=== PATIENT | female | born 1940 | race Caucasian/White ===

== ENCOUNTER 2019-08-08 15:31 | Emergency (ER) | payer MEDICAID, MEDICARE ==
[~2019-08-08] VITALS: Ht 154.9 cm; Wt 64.9 kg
[~2019-08-08 15:31] MED LIST: LEVO100T9 PO
[2019-08-08 15:46] VITALS: BP_SYST 140
--- NOTE | 2019-08-08 15:48 | NUR ---
Patient to ER bed 8 to gown for evaluation. Side rails up.
--- NOTE | 2019-08-08 15:58 | NUR ---
pt bib her son for righ knee pain. Pt fell and tripped outside while smoking. Pt denies any head pain or injury. Will conitnue to monitor.
--- NOTE | 2019-08-08 16:00 | NUR ---
MACRINA Goff at bedside examining patient.
[2019-08-08 16:10] LABS: BASOPHILS # (AUTO) 0.1 K/uL (0.0-0.2); BASOPHILS % (AUTO) 0.8 % (0.0-2.0); EOSINOPHILS # (AUTO) 0.1 K/uL (0.0-0.4); EOSINOPHILS % (AUTO) 1.3 % (0.0-4.0); HEMATOCRIT 36.4 % (36-48); HEMOGLOBIN 12.2 g/dL (12.0-16.0); LYMPHOCYTES # (AUTO) 0.8 K/uL (1.0-5.5); LYMPHOCYTES % (AUTO) 10.4 % (20.5-51.5); MEAN CORPUSCULAR HEMOGLOBIN 31 pg (27-31); MEAN CORPUSCULAR HGB CONC 34 % (32-36); MEAN CORPUSCULAR VOLUME 92 fL (79.0-98.0); MONOCYTES # (AUTO) 0.4 K/uL (0.0-1.0); MONOCYTES % (AUTO) 5.6 % (1.7-9.3); NEUTROPHILS # (AUTO) 6.1 K/uL (1.8-7.7); NEUTROPHILS % (AUTO) 81.9 % (40.0-70.0); PLATELET COUNT (AUTO) 182 K/uL (130-430); RED BLOOD CELL COUNT(AUTO) 3.96 MIL/uL (4.2-6.2); RED CELL DISTRIBUTION WIDTH 14.3 % (9.0-15.0); WHITE BLOOD COUNT (AUTO) 7.4 K/uL (4.8-10.8)
[2019-08-08 16:23] LABS: ANION GAP 11 (5-15); CALCIUM 7.7 mg/dL (8.4-11.0); CHLORIDE 99 mmol/L (98-107); CREATININE 1.36 mg/dL (0.55-1.30); GLUCOSE 110 mg/dL (70-99); POTASSIUM 3.7 mmol/L (3.5-5.1); SODIUM SERUM 134 mmol/L (136-145); UREA NITROGEN, BLOOD 30 mg/dL (8-21)
--- NOTE | 2019-08-08 16:28 | NUR ---
Patient transported to radiology via gurney, accompanied by rad staff.
[2019-08-08 16:32] LABS: ALBUMIN 2.9 g/dL (3.4-4.8); ASPARTATE AMINOTRANSFERASE 11 U/L (10-37); TOTAL BILIRUBIN 0.3 mg/dL (0.0-1.0)
--- NOTE | 2019-08-08 16:37 | NUR ---
pt returned from CT scan
--- NOTE | 2019-08-08 16:38 | NUR ---
medicated the pt with Ibuprofen. Will reassess.
[2019-08-08 16:46] LABS: ALANINE AMINOTRANSFERASE 12 U/L (12-78)
[2019-08-08] MEDS ORDERED: IBUPROFEN 400 MG TABLET PO ONE (17:00)
[2019-08-08 17:30] VITALS: BP_SYST 140
--- NOTE | 2019-08-08 17:30 | NUR ---
Patient given written and verbal discharge instructions and verbalizes understanding. ER MD discussed with patient the results and treatment provided. Patient in stable condition. ID arm band removed. Rx of Ibuprofen given. Patient educated on pain management and to follow up with PMD. Pain Scale 3/10.Opportunity for questions provided and answered. Medication side effect fact sheet provided.
--- NOTE | 2019-08-09 11:02 | NUR ---
Radiology discrepancy: Pts daughter was called to advise of tibial platuea fracture. Daughter verbalized that pt will return to ER for further evaluation.
[2019-08-09] MEDS ORDERED: CAND16TA25 PO (20:48)
== END 2019-08-08 17:30 | disposition home or self-care (01) ==
LOC: SED 15:31
DX: S80.01XA Contusion of right knee, initial encounter (principal); S09.90XA Unspecified injury of head, initial encounter; F17.210 Nicotine dependence, cigarettes, uncomplicated; Z71.6 Tobacco abuse counseling; W01.198A Fall on same level from slipping, tripping and stumbling with subsequent striking against other object, initial encounter; Y93.89 Activity, other specified; Y92.89 Other specified places as the place of occurrence of the external cause; Y99.8 Other external cause status
CPT/HCPCS: 36415; 70450-TC; 73564; 80053; 84484; 85025; 93005; 99284

== ENCOUNTER 2019-08-09 12:08 | Inpatient (IN) | payer MEDICAID ==
[~2019-08-09] VITALS: Ht 162.6 cm; Wt 74.4 kg
[2019-08-09 12:35] VITALS: BP_SYST 131
[2019-08-09] MEDS ORDERED: MORPHINE 2 MG/ML INJ. SYRINGE IM ONE (16:30)
[2019-08-09] MEDS ORDERED: NACL 0.9% 1,000 ML IV ONE (17:15)
[2019-08-09] MEDS ORDERED: KETOROLAC TROMETHAMINE 30 MG VIAL IVP ONE (17:15)
[2019-08-09] MEDS ORDERED: MORPHINE 4 MG/ML INJ. SYRINGE IVP PRN (18:00)
[2019-08-09] MEDS ORDERED: MORPHINE 2 MG/ML INJ. SYRINGE IVP PRN (18:00)
[2019-08-09] MEDS ORDERED: METOCLOPRAMIDE HCL 10 MG/2 ML VIAL IVP PRN (18:00)
[2019-08-09] MEDS ORDERED: ONDANSETRON HCL 4 MG/2 ML VIAL IVP PRN (18:00)
[2019-08-09 20:32] VITALS: BP_SYST 129
[2019-08-09] MEDS ORDERED: CAND16TA25 PO (20:48)
[2019-08-09 22:35] VITALS: BP_SYST 129
[2019-08-10 01:32] VITALS: BP_SYST 105
[2019-08-10] MEDS: LEVOTHYROXINE SODIUM 0.1 MG TABLET PO SCH (06:13)
[2019-08-10 08:00] VITALS: BP_SYST 116
[2019-08-10 11:29] LABS: BASOPHILS % (AUTO) 0.8 % (0.0-2.0); EOSINOPHILS # (AUTO) 0.2 K/uL (0.0-0.4); EOSINOPHILS % (AUTO) 3.5 % (0.0-4.0); HEMOGLOBIN 11.8 g/dL (12.0-16.0); LYMPHOCYTES # (AUTO) 0.7 K/uL (1.0-5.5); LYMPHOCYTES % (AUTO) 10.9 % (20.5-51.5); MEAN CORPUSCULAR HEMOGLOBIN 31 pg (27-31); MEAN CORPUSCULAR HGB CONC 34 % (32-36); MEAN CORPUSCULAR VOLUME 91 fL (79.0-98.0); MONOCYTES # (AUTO) 0.4 K/uL (0.0-1.0); MONOCYTES % (AUTO) 6.1 % (1.7-9.3); NEUTROPHILS # (AUTO) 4.8 K/uL (1.8-7.7); NEUTROPHILS % (AUTO) 78.7 % (40.0-70.0); PLATELET COUNT (AUTO) 149 K/uL (130-430); RED BLOOD CELL COUNT(AUTO) 3.86 MIL/uL (4.2-6.2); RED CELL DISTRIBUTION WIDTH 14.3 % (9.0-15.0); WHITE BLOOD COUNT (AUTO) 6.2 K/uL (4.8-10.8)
[2019-08-10 11:43] LABS: ANION GAP 10 (5-15); CALCIUM 7.3 mg/dL (8.4-11.0); CHLORIDE 98 mmol/L (98-107); CREATININE 1.31 mg/dL (0.55-1.30); GLUCOSE 97 mg/dL (70-99); POTASSIUM 3.7 mmol/L (3.5-5.1); SODIUM SERUM 134 mmol/L (136-145); UREA NITROGEN, BLOOD 20 mg/dL (8-21)
[2019-08-10 11:49] LABS: ALANINE AMINOTRANSFERASE 9 U/L (12-78); ALBUMIN 2.5 g/dL (3.4-4.8); ASPARTATE AMINOTRANSFERASE 11 U/L (10-37); TOTAL BILIRUBIN 0.3 mg/dL (0.0-1.0)
[2019-08-10 12:10] VITALS: BP_SYST 129
[2019-08-10] MEDS: ACETAMINOPHEN 325 MG TABLET PO PRN (13:55)
[2019-08-10 16:14] VITALS: BP_SYST 124
[2019-08-10] MEDS: MILK OF MAGNESIA 30 ML UDC PO PRN (21:21)
[2019-08-10 22:40] VITALS: BP_SYST 147
[2019-08-11 00:29] VITALS: BP_SYST 127
[2019-08-11] MEDS: LEVOTHYROXINE SODIUM 0.1 MG TABLET PO SCH (06:11)
[2019-08-11 07:53] VITALS: BP_SYST 140
[2019-08-11] MEDS: ACETAMINOPHEN 325 MG TABLET PO PRN ×2 (10:16→21:41)
[2019-08-11 12:49] VITALS: BP_SYST 110
[2019-08-11 16:34] VITALS: BP_SYST 124
[2019-08-11 20:35] VITALS: BP_SYST 146
[2019-08-12 00:41] VITALS: BP_SYST 141
[2019-08-12] MEDS: LEVOTHYROXINE SODIUM 0.1 MG TABLET PO SCH (06:44)
[2019-08-12] MEDS: MILK OF MAGNESIA 30 ML UDC PO PRN (06:45)
[2019-08-12 08:00] VITALS: BP_SYST 139
[2019-08-12] MEDS: ACETAMINOPHEN 325 MG TABLET PO PRN ×2 (08:29→14:13)
[2019-08-12 13:10] VITALS: BP_SYST 138
[2019-08-12 16:15] VITALS: BP_SYST 138
[2019-08-12 16:30] VITALS: BP_SYST 131
[2019-08-12 16:50] VITALS: BP_SYST 135
== END 2019-08-12 17:20 | disposition home or self-care (01) | DRG 342 ==
LOC: SED 12:08 → SMU 16:53
PROVIDERS: ADMIT Internal Medicine Hospice and Palliative Medicine; ATTEND Internal Medicine Hospice and Palliative Medicine
DX: S82.141A Displaced bicondylar fracture of right tibia, initial encounter for closed fracture (principal); E44.1 Mild protein-calorie malnutrition; E03.9 Hypothyroidism, unspecified; F17.210 Nicotine dependence, cigarettes, uncomplicated; I10 Essential (primary) hypertension; W18.30XA Fall on same level, unspecified, initial encounter; Y93.89 Activity, other specified; Y92.89 Other specified places as the place of occurrence of the external cause; Y99.8 Other external cause status
CPT/HCPCS: 36415; 73700-TC; 80053; 85025; 96361; 96374; 97116-GP; 97530-GP; 99285; J1885; J2270; J7030

== ENCOUNTER 2020-08-13 17:19 | Emergency (ER) | payer MEDICAID, MEDICARE ==
[~2020-08-13] VITALS: Ht 162.6 cm; Wt 63.5 kg
[~2020-08-13 17:19] MED LIST changes: +CAND16TA25 PO
[2020-08-13 17:42] VITALS: BP_SYST 127
[2020-08-13] MEDS ORDERED: PRED20TA PO (17:49)
[2020-08-13] MEDS ORDERED: FLUT1BLS3 INH (17:50)
[2020-08-13] MEDS ORDERED: LOSA50TA3 PO (17:50)
== END 2020-08-13 19:55 | disposition left against medical advice (07) ==
LOC: SED 17:19
DX: M79.605 Pain in left leg (principal); Z53.21 Procedure and treatment not carried out due to patient leaving prior to being seen by health care provider